=== PATIENT | female | born 2000 | race Caucasian/White ===

== ENCOUNTER 2023-08-13 01:15 | Emergency (ER) | payer SELFPAY ==
[~2023-08-13] VITALS: Ht 162.6 cm; Wt 76.2 kg
[2023-08-13 01:15] VITALS: BP 133/84; PULSE 100; RESP 18; TEMP 98; TEMP 98.7; O2SAT 97
[~2023-08-13 01:15] MED LIST: INSU100V SQ; INSULIN PUMP
[2023-08-13] MEDS ORDERED: DEXTROSE 10%-WATER IV SOLUTION 1,000 ML IV ONE (02:02)
[2023-08-13] MEDS ORDERED: DEXTROSE 10%-WATER IV SOLUTION 500 ML IV STA (02:04)
[2023-08-13 02:11] LABS: BASOPHIL % 0.1 % (0.0-0.2); EOSINOPHIL % 0.1 % (0.0-5.0); HEMATOCRIT(ML) 38.1 % (36.0-46.0); HEMOGLOBIN 12.7 g/dL (12.0-15.0); LYMPHOCYTES # 0.96 10^3/uL1 (1.0-4.8); MEAN CORP HGB 28.5 pg (26-34); MEAN CORP HGB CONCENTRATION 33.3 g/dL (33-36.5); MEAN CORP VOLUME 85.6 fL (78-100); MONOCYTES # 0.5 10^3/uL (0.3-0.8); MONOCYTES % 3.9 % (5.0-12.0); NEUTROPHIL # 12.2 10^3/uL (1.8-7.7); NEUTROPHILS % 88.6 % (41.0-85.0); PLATELET COUNT 316 10^3/uL (150-400); RED BLOOD CELL 4.45 10^6/uL (4.00-5.20); RED CELL DISTRIBUTION WIDTH 14.2 % (11.5-14.5); WHITE BLOOD CELL 13.7 10^3/uL (4.5-11.0)
[2023-08-13 02:14] LABS: +ADD MANUAL DIFF(NO CHRG) NO
[2023-08-13 02:22] LABS: ACETAMINOPHEN(ML) < 2 ug/mL (10-30); ALANINE AMINOTRANSFERASE(ML) 19 U/L (12-78); ALBUMIN(ML) 3.9 g/dL (3.4-5.0); ALBUMIN/GLOBULIN RATIO 1.114; ALKALINE PHOSPHATASE 124 U/L (50-136); ANION GAP 16.7; ASPARTATE AMINO TRANSFERASE 14 U/L (0-35); CALCIUM 9.1 mg/dL (8.4-10.5); CARBON DIOXIDE 21.2 mmol/L (20.0-32); CREATININE SERUM 0.94 mg/dL (0.59-1.40); EST GFR, NON-AA 72.6 (>/=60); GLUCOSE 58 mg/dL (74-106); POTASSIUM 2.9 mmol/L (3.6-5.2); SALICYLATE(ML) < 2.8 mg/dL (2.8-20.0); SODIUM 139 mmol/L (132-145)
[2023-08-13] MEDS ORDERED: KLOR-CON 10 PO STA (02:30)
[2023-08-13] MEDS ORDERED: KLOR-CON 10 PO ONE (02:33)
[2023-08-13 02:54] VITALS: BP 145/89; PULSE 98; RESP 18; O2SAT 98
== END 2023-08-13 02:54 | disposition short-term general hospital (02) ==
LOC: EDBD 01:15 → ER 01:15
DX: T65.91XA Toxic effect of unspecified substance, accidental (unintentional), initial encounter (principal); F32.9 Major depressive disorder, single episode, unspecified; E87.6 Hypokalemia; E11.9 Type 2 diabetes mellitus without complications; Z90.89 Acquired absence of other organs; Z98.890 Other specified postprocedural states; Y92.89 Other specified places as the place of occurrence of the external cause
CPT/HCPCS: 99291; 96365; 80053; 85025; 82948 ×2; 36415; 80299 ×2; 82077; 84703; J3490; 80307